=== PATIENT | male | born 1955 | race Caucasian/White ===

== ENCOUNTER 2018-05-03 07:48 | Outpatient (CLI) | payer BC ==
[2018-05-03] MEDS ORDERED: Sodium Chloride 0.9% 15 ML NEB ONE (10:34)
--- NOTE | 2018-05-03 10:52 | HP ---
DATE OF SERVICE: 05/03/2018 HISTORY OF PRESENT ILLNESS: Mr. Diogenes Tarango is a very pleasant 62-year-old gentleman who pre [facility]ents [facility] for evaluation of a raised lesion of the left lateral lower leg which the p atient states has been present for approximately 3-4 months. The patient states that he has kept the lesion covered for the past 2 months to keep from "picking" at the lesion. The patient states that he was seen by Dr. Mancini for hypertension and at this time referred to the [facility] for [facility], [facility] er evaluation and treatment. The patient states that the lesion is associated with tenderness when h e bumps the lesion. PAST MEDICAL HISTORY: 1. Hypertension. 2. Allergies. 3. History of basal cell carcinoma of the back, status post excision. PAST SURGICAL HISTORY: 1. Back surgery in 1988. 2. Excision of basal cell carcinoma in 07/2016. MEDICATIONS: 1. Coenzyme Q10. 2. Losartan. 3. Lasix. 4. Potassium. 5. Pravastatin. ALLERGIES: No known diagnosed allergies. SOCIAL HISTORY: Significant for the use of snuff. The patient states that he dips 1 can every 2 day s and has done so for the past 30 years. The patient admits to the social consumption of alcohol. FAMILY HISTORY: Negative for diabetes mellitus or coronary artery disease. PHYSICAL EXAMINATION: VITAL SIGNS: Temperature 97.8, pulse 62, respirations 18, blood pressure 138/71. GENERAL: A 62-year-old gentleman sitting on table in examination room in no acute distress. HEENT: Normocephalic, atraumatic. NECK: No nuchal rigidity. CHEST: Clear to auscultation. CARDIAC: Regular rate and rhythm. ABDOMEN: Soft. EXTREMITIES: A lesion of the left anterolateral lower leg is present which measures approximately 1. 7 x 1.7 cm. The lesion is raised. No open wound of the left lower leg is present. No cellulitis of the left lower leg is present. No maceration of the skin of the left lower leg is noted. A dorsali s pedis pulse is palpable on the left. No significant edema of the left foot or lower leg is present on exam today. Discoloration of the skin of the left lower leg is present secondary to hemosiderin deposition. Varicosities are also present over the left lower leg. Another more diffuse lesion of t he left anterior ankle is present which is less raised than the preceding lesion. NEUROLOGIC: Grossly nonfocal. ASSESSMENT AND PLAN: 1. Lesion of anterolateral lower leg as described above. Also as stated above, the patient has a mo re diffuse lesion over the left anterior ankle, which is less raised then the preceding lesion. In v iew of the patient's history of basal cell carcinoma, I have recommended biopsy of the lesion of the left lateral lower leg. I have explained to the patient that the lesion's appearance is consistent w ith that of basal cell carcinoma. I have explained to the patient at the time of evaluation of the l esion of the left lateral lower leg. Biopsy of the lesion over the left anterior ankle may be obtain ed. The patient was previously seen by Dr. Welch for the basal cell carcinoma of the back. The emily ent states that he would prefer that his care be consolidated and he states that he will follow up wi th Dr. Welch. I have told the patient he may return to the [facility] as needed for biopsy of one or both lesions or for referral to Plastic Surgery or Dermatology if necessary. The patient understa nds and is in agreement with the preceding treatment plan. 2. Hypertension. 3. Allergies. 4. History of basal cell carcinoma of the back, status post excision in 07/2016.
== END 2018-05-03 07:49 | disposition home or self-care (01) ==
LOC: WCC 07:48
PROVIDERS: ATTEND Family Medicine
DX: M25.872 Other specified joint disorders, left ankle and foot (principal); I10 Essential (primary) hypertension; T78.40XA Allergy, unspecified, initial encounter; Z98.890 Other specified postprocedural states; Z85.89 Personal history of malignant neoplasm of other organs and systems
CPT/HCPCS: 97602; 99203; A4218; G0463

== ENCOUNTER 2021-07-20 13:06 | Outpatient (CLI) | payer MEDICARE, BC | END 2021-07-20 13:07 | disposition home or self-care (01) | LOC: BICRAD 13:06 | PROVIDERS: ATTEND Family Medicine | DX: M54.5 Low back pain (principal); M47.816 Spondylosis without myelopathy or radiculopathy, lumbar region | CPT/HCPCS: 72100 ==

== ENCOUNTER 2021-09-29 15:25 | Emergency (ER) | payer MEDICARE, BC | END 2021-09-29 17:03 | disposition home or self-care (01) | LOC: ERS 15:25 | DX: F41.9 Anxiety disorder, unspecified (principal); I10 Essential (primary) hypertension; E66.9 Obesity, unspecified; F17.220 Nicotine dependence, chewing tobacco, uncomplicated; Z79.899 Other long term (current) drug therapy | CPT/HCPCS: 93005 ==

== ENCOUNTER 2024-04-07 10:23 | Inpatient (IN) | payer BC, MEDICARE ==
[2024-04-07 11:08] LABS: #Basophils Less than 0.03 10x3/uL (0.0-0.2); #Eosinphils Less than 0.03 10x3/uL (0.0-0.7); %Basophils 0.1 % (0.0-1.0); %Eosinophils 0.1 % (0.0-10.0); %Lymphocytes 5.7 % (21.0-51.0); %Monocytes 8.5 % (0.0-10.0); %Neutrophils 85.1 % (42.0-75.0); Hematocrit 40.2 % (42.0-52.0); Hemoglobin 13.8 g/dL (14.0-18.0); Mean Corpuscular HGB CONC 34.3 g/dL (32.0-36.0); Mean Corpuscular Hemoglobin 31.1 pg (27.0-31.0); Mean Corpuscular Volume 90.5 fL (78.0-98.0); Mean Platelet Volume 9.3 fL (7.4-10.4); Platelet Count 220 10x3/uL (130-400); RBC Distribution Width 13.6 % (11.5-14.5); Red Blood Cell (RBC) Count 4.44 mill/uL (4.70-6.10)
[2024-04-07 11:26] LABS: ALT (SGPT) 8 U/L (8-55); AST (SGOT) 19 U/L (5-34); Albumin 2.9 g/dL (3.4-4.8); Alkaline Phosphatase 66 U/L (40-110); Anion Gap 15 mmol/L (10-20); BUN (Urea Nitrogen) 16 mg/dL (8.4-25.7); Bilirubin, Total 2.1 mg/dL (0.2-1.2); Calc. Creatinine Clearance 0 mL/min (70-130); Calcium 9.1 mg/dL (7.8-10.44); Carbon Dioxide 24 mmol/L (23-31); Chloride 98 mmol/L (98-107); Estimated GFR 91; Globulin 3.7 g/dL (2.4-3.5); Glucose 105 mg/dL (80-115); Protein, Total 6.6 g/dL (5.8-8.1); Sodium 134 mmol/L (136-145)
[2024-04-07 11:39] LABS: Bacteria/HPF None Seen HPF (None Seen); Bilirubin Negative (Negative); Blood, Urine Trace (Negative); CAUTI Indications for Culture Dysuria,urgency,freq; Clarity Clear (Clear); Glucose, Urine (Dipstick) Normal (Negative); Ketone, Urine Negative (Negative); Leukocyte Negative Leu/uL (Negative); Nitrite Negative (Negative); Protein, Urine (Dipstick) Negative (Neg-Trace); RBC/HPF 0-3 HPF (0-3); Specific Gravity, Urine 1.009 (1.002-1.036); Squamous Epithelial 0-3 HPF (0-3); Urobilinogen Normal mg/dL (Less than 2); WBC/HPF 0-3 HPF (0-3); pH, Urine 6.5 (5.0-9.0)
[2024-04-07 11:40] LABS: Urine Culture Reflex No No
[2024-04-07 12:03] LABS: Influenza A by NAA Not Detected (NotDetected); Influenza B by NAA Not Detected (NotDetected); SARS-CoV-2 NAA Rapid Test Not Detected (NotDetected)
[2024-04-07 14:07] LABS: Lactic Acid 1.2 mmol/L (0.5-2.2)
[2024-04-07 14:10] LABS: Magnesium 1.7 mg/dL (1.6-2.6)
[2024-04-07] MEDS ORDERED: Furosemide 40 MG (4 mL) VIAL ONE (14:48)
[2024-04-07] MEDS ORDERED: Acetaminophen 325 MG TAB PO PRN (14:56)
[2024-04-07] MEDS ORDERED: Ondansetron PF 4 MG/2 ML Vial IVP PRN (14:56)
[2024-04-07] MEDS ORDERED: Electrolyte Replacement Protocol FS SCH (15:15)
[2024-04-07 16:27] VITALS: BMI 38.1
[2024-04-07] MEDS: Magnesium 2 GM/50 ML(in water) 2 GM in Premix 1 BAG IVPB SCH (17:58)
[2024-04-07] MEDS: Potassium Chloride 20 MEQ TAB PO SCH ×2 (17:58→21:21)
[2024-04-07] MEDS: Heparin 5,000 UNITS/ML VIAL SC SCH (18:19)
[2024-04-07 18:21] LABS: Troponin I 0.056 ng/mL (< 0.028)
[2024-04-07 20:06] LABS: Potassium 3.2 mmol/L (3.5-5.1)
[2024-04-07 20:18] LABS: Troponin I 0.057 ng/mL (< 0.028)
[2024-04-07] MEDS: Senokot S 8.6-50 MG TAB PO PRN (21:22)
[2024-04-07] MEDS: Melatonin 3 MG TAB PO PRN (21:38)
[2024-04-08 05:35] LABS: #Basophils 0.03 10x3/uL (0.0-0.2); #Eosinphils Less than 0.03 10x3/uL (0.0-0.7); %Basophils 0.3 % (0.0-1.0); %Eosinophils 0.2 % (0.0-10.0); %Lymphocytes 11.3 % (21.0-51.0); %Monocytes 9.5 % (0.0-10.0); %Neutrophils 78.4 % (42.0-75.0); Hematocrit 37.5 % (42.0-52.0); Hemoglobin 12.7 g/dL (14.0-18.0); Mean Corpuscular HGB CONC 33.9 g/dL (32.0-36.0); Mean Corpuscular Hemoglobin 30.2 pg (27.0-31.0); Mean Corpuscular Volume 89.1 fL (78.0-98.0); Mean Platelet Volume 9.8 fL (7.4-10.4); Platelet Count 207 10x3/uL (130-400); RBC Distribution Width 13.8 % (11.5-14.5); Red Blood Cell (RBC) Count 4.21 mill/uL (4.70-6.10)
[2024-04-08 05:54] LABS: ALT (SGPT) 14 U/L (8-55); AST (SGOT) 33 U/L (5-34); Albumin 2.5 g/dL (3.4-4.8); Alkaline Phosphatase 61 U/L (40-110); Anion Gap 12 mmol/L (10-20); BUN (Urea Nitrogen) 17 mg/dL (8.4-25.7); Bilirubin, Total 1.9 mg/dL (0.2-1.2); Calc. Creatinine Clearance 166 mL/min (70-130); Calcium 8.5 mg/dL (7.8-10.44); Carbon Dioxide 24 mmol/L (23-31); Chloride 96 mmol/L (98-107); Estimated GFR 95; Globulin 3.5 g/dL (2.4-3.5); Glucose 104 mg/dL (80-115); Magnesium 1.9 mg/dL (1.6-2.6); Potassium 3.3 mmol/L (3.5-5.1); Sodium 129 mmol/L (136-145)
[2024-04-08] MEDS: Furosemide 40 MG (4 mL) VIAL SLOW IVP SCH (06:11)
[2024-04-08] MEDS: Magnesium 2 GM/50 ML(in water) 2 GM in Premix 1 BAG IVPB SCH (10:09)
[2024-04-08] MEDS: Potassium Chloride 20 MEQ TAB PO SCH ×2 (10:09→18:03)
[2024-04-08] MEDS: diphenhydrAMINE 25 MG CAP PO SCH (20:32)
[2024-04-08] MEDS: Famotidine 20 MG TAB PO SCH (20:32)
[2024-04-09 06:07] LABS: #Basophils 0.03 10x3/uL (0.0-0.2); %Basophils 0.3 % (0.0-1.0); %Eosinophils 0.6 % (0.0-10.0); %Lymphocytes 14.6 % (21.0-51.0); %Monocytes 8.6 % (0.0-10.0); %Neutrophils 75.7 % (42.0-75.0); Hematocrit 39.9 % (42.0-52.0); Hemoglobin 13.2 g/dL (14.0-18.0); Mean Corpuscular HGB CONC 33.1 g/dL (32.0-36.0); Mean Corpuscular Hemoglobin 30.8 pg (27.0-31.0); Mean Corpuscular Volume 93.2 fL (78.0-98.0); Mean Platelet Volume 9.5 fL (7.4-10.4); Platelet Count 254 10x3/uL (130-400); RBC Distribution Width 13.8 % (11.5-14.5); Red Blood Cell (RBC) Count 4.28 mill/uL (4.70-6.10)
[2024-04-09 06:27] LABS: Anion Gap 11 mmol/L (10-20); BUN (Urea Nitrogen) 21 mg/dL (8.4-25.7); Calc. Creatinine Clearance 129 mL/min (70-130); Calcium 9.3 mg/dL (7.8-10.44); Carbon Dioxide 28 mmol/L (23-31); Chloride 96 mmol/L (98-107); Estimated GFR 92; Glucose 94 mg/dL (80-115); Magnesium 2.2 mg/dL (1.6-2.6); Potassium 3.9 mmol/L (3.5-5.1)
[2024-04-09 06:42] LABS: Sodium 131 mmol/L (136-145)
[2024-04-09] MEDS: Losartan 25 MG TAB PO SCH (09:04)
[2024-04-09] MEDS: hydrOXYzine 25 MG TAB PO SCH (22:58)
[2024-04-10] MEDS ORDERED: Regadenoson 0.4 MG/5 ML SYRINGE ONE (10:13)
[2024-04-10] MEDS: diphenhydrAMINE 25 MG CAP PO SCH (22:44)
[2024-04-11 08:17] VITALS: BP 113/55; TEMP 97.1
== END 2024-04-11 11:07 | disposition home or self-care (01) | DRG 291 ==
LOC: ERS 10:23 → 2NO 14:16
PROVIDERS: ADMIT Internal Medicine; ATTEND Internal Medicine
DX: I11.0 Hypertensive heart disease with heart failure (principal); I50.33 Acute on chronic diastolic (congestive) heart failure; J96.01 Acute respiratory failure with hypoxia; E87.1 Hypo-osmolality and hyponatremia; I47.10 Supraventricular tachycardia, unspecified; E87.6 Hypokalemia; E78.00 Pure hypercholesterolemia, unspecified; E66.01 Morbid (severe) obesity due to excess calories; Z68.32 Body mass index [BMI] 32.0-32.9, adult; Z79.899 Other long term (current) drug therapy; T50.2X5A Adverse effect of carbonic-anhydrase inhibitors, benzothiadiazides and other diuretics, initial encounter
CPT/HCPCS: 36415; 71045; 78452; 80048; 80053; 81001; 83605; 83735; 83880; 84484; 85025; 93005; 93010; 93017; 93306; 93798; 96374; A9502; J1644; J1940; J2785; J3475

== ENCOUNTER 2024-05-03 08:27 | Emergency (ER) | payer MEDICARE ==
[2024-05-03] MEDS ORDERED: Lidocaine 4% Patch TD SCH (10:00)
[2024-05-03] MEDS ORDERED: Transdermal Patch Removal TOP SCH (21:00)
== END 2024-05-03 10:15 | disposition home or self-care (01) ==
LOC: ERS 08:27
DX: M25.551 Pain in right hip (principal); F17.220 Nicotine dependence, chewing tobacco, uncomplicated; I10 Essential (primary) hypertension

== ENCOUNTER 2024-11-13 08:38 | Outpatient (CLI) | payer MEDICARE | END 2024-11-13 08:39 | disposition home or self-care (01) | LOC: NM 08:38 | PROVIDERS: ATTEND Psychiatry & Neurology Neurology | DX: G20.C Parkinsonism, unspecified (principal); R93.0 Abnormal findings on diagnostic imaging of skull and head, not elsewhere classified | CPT/HCPCS: 78803; A9584 ×2 ==

== ENCOUNTER 2025-09-23 11:21 | Emergency (ER) | payer MEDICARE ==
[2025-09-23 12:45] LABS: Bacteria/HPF None Seen HPF (None Seen); CAUTI Indications for Culture Acute Hematuria; Glucose, Urine (Dipstick) Normal (Negative); Leukocyte Negative Leu/uL (Negative); Protein, Urine (Dipstick) Negative (Neg-Trace); RBC/HPF 21-50 HPF (0-3); Specific Gravity, Urine 1.009 (1.002-1.036); WBC/HPF 0-3 HPF (0-3)
[2025-09-23 12:47] LABS: Urine Culture Reflex No No
[2025-09-23 13:47] LABS: Anion Gap 14 mmol/L (10-20); BUN (Urea Nitrogen) 17 mg/dL (8.4-25.7); Calc. Creatinine Clearance 0 mL/min (70-130); Calcium 9.1 mg/dL (7.8-10.44); Carbon Dioxide 23 mmol/L (23-31); Chloride 104 mmol/L (98-107); Glucose 115 mg/dL (83-110); Potassium 3.5 mmol/L (3.5-5.1); Sodium 137 mmol/L (136-145)
== END 2025-09-23 14:40 ==
LOC: ERS 11:21
DX: R33.9 Retention of urine, unspecified (principal); I10 Essential (primary) hypertension; Z79.899 Other long term (current) drug therapy
CPT/HCPCS: 51702; 80048; 81001